=== PATIENT | male | born 1965 | race Caucasian/White ===

== ENCOUNTER 2019-02-12 07:04 | Emergency (ER) | payer SELFPAY ==
--- NOTE | 2019-02-12 07:44 | EDM.PDOC ---
ED HPI GENERAL MEDICAL PROBLEM - General Chief Complaint: Respiratory Problem Stated Complaint: CHEST COLD, SORE THOAT Time Seen by Provider: 02/12/19 07:07 Source of Information: Reports: Patient History Limitations: Reports: No Limitations - History of Present Illness INITIAL COMMENTS - FREE TEXT/NARRATIVE: History of present illness: []Patient has had sinus congestion and pain with fevers, chills 3 days. He states his throat feels dry and painful when he swallows but is not having difficulty tolerating liquids or food but denies being short of breath. He does have a mild cough with chest ejection. Review of systems: As per history of present illness and below otherwise all systems reviewed and negative. Past medical history: As per history of present illness and as reviewed below otherwise noncontributory. Surgical history: As per history of present illness and as reviewed below otherwise noncontributory. Social history: No reported history of drug or alcohol abuse. Family history: As per history of present illness and as reviewed below otherwise noncontributory. Physical exam: General: Well developed, well nourished in NAD HEENT: Atraumatic, normocephalic, pupils reactive, negative for conjunctival pallor or scleral icterus, mucous membranes moist, throat clear, no erythema or exudate, neck supple, nontender, trachea midline. Positives frontal sinus tenderness palpation Lungs: Clear to auscultation, breath sounds equal bilaterally, chest nontender. Heart: S1S2, regular, negative for clicks, rubs, or JVD. Abdomen: NABS, Soft, nondistended, nontender. Negative for masses or hepatosplenomegaly. Negative for costovertebral tenderness. Pelvis: Stable nontender. Genitourinary: Deferred. Rectal: Deferred. Extremities: Atraumatic, negative for cords or calf pain. Neurovascular unremarkable. Neuro: Awake, alert, oriented. Cranial nerves II through XII unremarkable. Cerebellum unremarkable. Motor and sensory unremarkable throughout. Exam nonfocal. Skin:warm and dry Diagnostics: None Therapeutics: None ED Course: Stable Impression: Acute sinusitis Prescriptions: Z-Enmanuel Plan: Take meds as directed, follow up with your primary care physician, return to ER if symptoms worsen or change. Definitive disposition and diagnosis as appropriate pending reevaluation and review of above. - Related Data Allergies Allergy/AdvReac Type Severity Reaction Status Date / Time Penicillins Allergy Cannot Verified 02/12/19 07:15 Remember Home Meds: Home Meds Azithromycin [Zithromax] 250 mg PO DAILY #6 tab 02/12/19 [Rx] Omeprazole Magnesium [Prilosec Otc] 20 mg PO DAILY 02/12/19 [History] Past Medical History - Infectious Disease History Infectious Disease History: Reports: Chicken Pox, Measles - Past Surgical History Other Musculoskeletal Surgeries/Procedures:: arm surgery Social & Family History - Family History Family Medical History: Noncontributory - Tobacco Use Smoking Status *Q: Current Every Day Smoker Years of Tobacco use: 35 Packs/Tins Daily: 1.5 - Recreational Drug Use Recreational Drug Use: No ED ROS GENERAL - Review of Systems Review Of Systems: ROS reveals no pertinent complaints other than HPI. ED EXAM, GENERAL - Physical Exam Exam: See Below (The history of present illness) Course - Vital Signs Last Recorded V/S: Last Vital Signs Temp 97.6 F 02/12/19 07:17 Pulse 81 02/12/19 07:17 Resp 18 02/12/19 07:17 BP 118/74 02/12/19 07:17 Pulse Ox 94 L 02/12/19 07:17 Departure - Departure Time of Disposition: 07:42 Disposition: Home, Self-Care 01 Condition: Good Clinical Impression: Acute sinusitis Qualifiers: Sinusitis location: unspecified location Recurrence: non-recurrent Qualified Code(s): J01.90 - Acute sinusitis, unspecified - Discharge Information *PRESCRIPTION DRUG MONITORING PROGRAM REVIEWED*: No *COPY OF PRESCRIPTION DRUG MONITORING REPORT IN PATIENT VIRGEN: No Prescriptions: Azithromycin [Zithromax] 250 mg PO DAILY #6 tab Referrals: PCP,None [Primary Care Provider] - Additional Instructions: The following information is given to patients seen in the emergency department who are being discharged to home. This information is to outline your options for follow-up care. We provide all patients seen in our emergency department with a follow-up referral. The need for follow-up, as well as the timing and circumstances, are variable depending upon the specifics of your emergency department visit. If you don't have a primary care physician on staff, we will provide you with a referral. We always advise you to contact your personal physician following an emergency department visit to inform them of the circumstance of the visit and for follow-up with them and/or the need for any referrals to a consulting specialist. The emergency department will also refer you to a specialist when appropriate. This referral assures that you have the opportunity for follow-up care with a specialist. All of these measure are taken in an effort to provide you with optimal care, which includes your follow-up. Under all circumstances we always encourage you to contact your private physician who remains a resource for coordinating your care. When calling for follow-up care, please make the office aware that this follow-up is from your recent emergency room visit. If for any reason you are refused follow-up, please contact the [facility] Emergency Department at and asked to speak to the emergency department charge nurse. [facility] [address] [place] [id number]
== END 2019-02-12 07:56 | disposition home or self-care (01) ==
LOC: MW.ED 07:04
DX: J01.90 Acute sinusitis, unspecified (principal); F17.210 Nicotine dependence, cigarettes, uncomplicated; Z88.0 Allergy status to penicillin; Z79.899 Other long term (current) drug therapy
CPT/HCPCS: 99283

== ENCOUNTER 2019-04-01 07:45 | Observation (INO) | payer SELFPAY ==
[2019-04-01] MEDS ORDERED: Nitroglycerin 0.4 MG Tab.SL SL PRN (07:51)
--- NOTE | 2019-04-01 07:53 | EDM.PDOC ---
ED HPI GENERAL MEDICAL PROBLEM - General Stated Complaint: CHEST PAIN Time Seen by Provider: 04/01/19 07:50 - History of Present Illness INITIAL COMMENTS - FREE TEXT/NARRATIVE: HISTORY AND PHYSICAL: History of present illness: Patient 53-year-old white male with a 45+ pack year history of smoking or sensory concern of chest pain shortness of breath started acutely approximately hour prior to arrival he denies similar episodes in the past he states he states he has never been told of any lung problems or heart problems there's been no associated palpitations or nausea vomiting Review of systems: As per history of present illness and below otherwise all systems reviewed and negative. Past medical history: As per history of present illness and as reviewed below otherwise noncontributory. Surgical history: As per history of present illness and as reviewed below otherwise noncontributory. Social history: No reported history of drug or alcohol abuse. Family history: As per history of present illness and as reviewed below otherwise noncontributory. Physical exam: HEENT: Atraumatic, normocephalic, pupils reactive, negative for conjunctival pallor or scleral icterus, mucous membranes moist, throat clear, neck supple, nontender, trachea midline. Lungs: Diminished, breath sounds equal bilaterally, chest nontender. Heart: S1S2, regular, negative for clicks, rubs, or JVD. Abdomen: Soft, nondistended, nontender. Negative for masses or hepatosplenomegaly. Negative for costovertebral tenderness. Pelvis: Stable nontender. Genitourinary: Deferred. Rectal: Deferred. Extremities: Atraumatic, negative for cords or calf pain. Neurovascular unremarkable. Neuro: Awake, alert, oriented. Cranial nerves II through XII unremarkable. Cerebellum unremarkable. Motor and sensory unremarkable throughout. Exam nonfocal. Diagnostics: CBC CMP troponin PT/INR BNP chest x-ray EKG d-dimer Therapeutics: IV O2 monitor aspirin nitroglycerin Impression: #1 chest pain #2 dyspnea Definitive disposition and diagnosis as appropriate pending reevaluation and review of above. - Related Data Allergies Allergy/AdvReac Type Severity Reaction Status Date / Time Penicillins Allergy Cannot Verified 04/01/19 07:54 Remember Home Meds: Home Meds Omeprazole Magnesium [Prilosec Otc] 20 mg PO DAILY 02/12/19 [History] Past Medical History - Infectious Disease History Infectious Disease History: Reports: Chicken Pox, Measles - Past Surgical History Other Musculoskeletal Surgeries/Procedures:: arm surgery Social & Family History - Family History Family Medical History: Noncontributory ED ROS GENERAL - Review of Systems Review Of Systems: ROS reveals no pertinent complaints other than HPI. ED EXAM, GENERAL - Physical Exam Exam: See Below (See dictation) Course - Vital Signs Last Recorded V/S: Last Vital Signs Temp 36.3 C 04/01/19 08:55 Pulse 67 04/01/19 08:55 Resp 16 04/01/19 08:55 BP 108/78 04/01/19 08:55 Pulse Ox 95 04/01/19 08:55 - Orders/Labs/Meds Orders: Active Orders 24 hr Category Date Time Status Cardiac Monitoring [RC] . DIRECTED Care 04/01/19 07:51 Active EKG Documentation Completion [RC] STAT Care 04/01/19 07:51 Active Oxygen Therapy [RC] PRN Care 04/01/19 07:52 Active Pulse Oximetry [RC] CONTINUOUS Care 04/01/19 07:52 Active Nitroglycerin [Nitrostat] Med 04/01/19 07:51 Active 0.4 mg SL Q5M PRN Medication Orders Nitroglycerin (Nitrostat) 0.4 mg SL Q5M PRN PRN Reason: Chest Pain Stop: 04/02/19 07:52 Labs: Laboratory Tests 04/01/19 04/01/19 04/01/19 Range/Units 07:45 07:45 07:45 WBC 10.91 (4.0-11.0) K/uL RBC 5.20 (4.50-5.90) M/uL Hgb 15.8 (13.0-17.0) g/dL Hct 47.6 (38.0-50.0) % MCV 91.5 (80.0-98.0) fL MCH 30.4 (27.0-32.0) pg MCHC 33.2 (31.0-37.0) g/dL RDW Std Deviation 44.6 (28.0-62.0) fl RDW Coeff of Hemanth 13 (11.0-15.0) % Plt Count 240 (150-400) K/uL MPV 10.10 (7.40-12.00) fL Neut % (Auto) 57.7 (48.0-80.0) % Lymph % (Auto) 29.6 (16.0-40.0) % [place] % (Auto) 9.5 (0.0-15.0) % Eos % (Auto) 2.6 (0.0-7.0) % Baso % (Auto) 0.6 (0.0-1.5) % Neut # (Auto) 6.3 H (1.4-5.7) K/uL Lymph # (Auto) 3.2 H (0.6-2.4) K/uL [place] # (Auto) 1.0 H (0.0-0.8) K/uL Eos # (Auto) 0.3 (0.0-0.7) K/uL Baso # (Auto) 0.1 (0.0-0.1) K/uL Nucleated RBC % 0.0 /100WBC Nucleated RBCs # 0 K/uL INR 0.98 D-Dimer, Quantitative 0.24 (0.0-0.50) mg/L FEU Sodium 139 (136-148) mmol/L Potassium 4.3 (3.5-5.1) mmol/L Chloride 105 (98-107) mmol/L Carbon Dioxide 26.7 (21.0-32.0) mmol/L BUN 21 H (7.0-18.0) mg/dL Creatinine 1.2 (0.8-1.3) mg/dL Est Cr Clr Drug Dosing 79.53 mL/min Estimated GFR (MDRD) > 60.0 ml/min Glucose 152 H (74-106) mg/dL Calcium 8.4 L (8.5-10.1) mg/dL Total Bilirubin 0.4 (0.2-1.0) mg/dL AST 22 (15-37) IU/L ALT 28 (14-63) IU/L Alkaline Phosphatase 109 (46-116) U/L Troponin I < 0.050 (0.000-0.056) ng/mL B-Natriuretic Peptide (<100) PG/ML Total Protein 7.0 (6.4-8.2) g/dL Albumin 3.6 (3.4-5.0) g/dL Globulin 3.4 (2.6-4.0) g/dL Albumin/Globulin Ratio 1.1 (0.9-1.6) 04/01/19 Range/Units 07:45 WBC (4.0-11.0) K/uL RBC (4.50-5.90) M/uL Hgb (13.0-17.0) g/dL Hct (38.0-50.0) % MCV (80.0-98.0) fL MCH (27.0-32.0) pg MCHC (31.0-37.0) g/dL RDW Std Deviation (28.0-62.0) fl RDW Coeff of Hemanth (11.0-15.0) % Plt Count (150-400) K/uL MPV (7.40-12.00) fL Neut % (Auto) (48.0-80.0) % Lymph % (Auto) (16.0-40.0) % [place] % (Auto) (0.0-15.0) % Eos % (Auto) (0.0-7.0) % Baso % (Auto) (0.0-1.5) % Neut # (Auto) (1.4-5.7) K/uL Lymph # (Auto) (0.6-2.4) K/uL [place] # (Auto) (0.0-0.8) K/uL Eos # (Auto) (0.0-0.7) K/uL Baso # (Auto) (0.0-0.1) K/uL Nucleated RBC % /100WBC Nucleated RBCs # K/uL INR D-Dimer, Quantitative (0.0-0.50) mg/L FEU Sodium (136-148) mmol/L Potassium (3.5-5.1) mmol/L Chloride (98-107) mmol/L Carbon Dioxide (21.0-32.0) mmol/L BUN (7.0-18.0) mg/dL Creatinine (0.8-1.3) mg/dL Est Cr Clr Drug Dosing mL/min Estimated GFR (MDRD) ml/min Glucose (74-106) mg/dL Calcium (8.5-10.1) mg/dL Total Bilirubin (0.2-1.0) mg/dL AST (15-37) IU/L ALT (14-63) IU/L Alkaline Phosphatase (46-116) U/L Troponin I (0.000-0.056) ng/mL B-Natriuretic Peptide 5 (<100) PG/ML Total Protein (6.4-8.2) g/dL Albumin (3.4-5.0) g/dL Globulin (2.6-4.0) g/dL Albumin/Globulin Ratio (0.9-1.6) Meds: Medications Generic Name Dose Route Start Last Admin Trade Name Freq PRN Reason Stop Dose Admin Nitroglycerin 0.4 mg 04/01/19 07:51 Nitrostat SL 04/02/19 07:52 Q5M PRN Chest Pain Discontinued Medications Generic Name Dose Route Start Last Admin Trade Name Freq PRN Reason Stop Dose Admin Aspirin 162 mg 04/01/19 07:54 04/01/19 08:13 Aspirin PO 04/01/19 07:55 Not Given ONETIME ONE Departure - Departure Time of Disposition: 10:36 Disposition: Refer to Observation Condition: Good Clinical Impression: Chest pain, Dyspnea - Discharge Information - My Orders Last 24 Hours: My Active Orders 04/01/19 07:51 Cardiac Monitoring [RC] . DIRECTED EKG Documentation Completion [RC] STAT Nitroglycerin [Nitrostat] 0.4 mg SL Q5M PRN 04/01/19 07:52 Oxygen Therapy [RC] PRN Pulse Oximetry [RC] CONTINUOUS - Assessment/Plan Last 24 Hours: My Active Orders 04/01/19 07:51 Cardiac Monitoring [RC] . DIRECTED EKG Documentation Completion [RC] STAT Nitroglycerin [Nitrostat] 0.4 mg SL Q5M PRN 04/01/19 07:52 Oxygen Therapy [RC] PRN Pulse Oximetry [RC] CONTINUOUS
[2019-04-01] MEDS ORDERED: Aspirin 81 MG Tab.Chew PO ONE (07:54)
[2019-04-01 08:42] LABS: CHLORIDE,CL 105 mmol/L (98-107); SODIUM,NA 139 mmol/L (136-148)
--- NOTE | 2019-04-01 08:49 | CR ---
INDICATION: Chest pain. TECHNIQUE: AP portable upright chest at 7:55 a.m. FINDINGS: Both lungs are expanded without pneumothoraces or infiltrates. Questionable calcified granuloma right mid lung laterally. Clear left lung. Normal heart size. The included skeleton is grossly unremarkable. IMPRESSION: No acute cardiopulmonary process identified. Dictated by Edgar Acharya MD @ Apr 01 2019 8:47AM Signed by Dr. Edgar Acharya @ Apr 01 2019 8:47AM
--- NOTE | 2019-04-01 11:15 | PCM.HP ---
H&P History of Present Illness - General Date of Service: 04/01/19 Admit Problem/Dx: Admission Diagnosis/Problem Admission Diagnosis/Problem Chest pain Source of Information: Patient History Limitations: Reports: No Limitations - History of Present Illness Initial Comments - Free Text/Narative: This 53 year old male with pmh of smoking presents to the ED today with complaints of chest pain that started 20 minutes prior to arrival. He reports he was standing around, about to go have a cigarette, when suddenly he had a pain, fluttering and sharp to his L mid chest. he reports he had some shortness of breath with this and felt flushed. Then it went away. He came to the ED right away, co workers gave him 2 aspirin. He denies radiation of pain. nothing he did made the pain worse or better. It went away on its own. Reports it hurts to press on his L chest, rpeorts he has been lifting heavy tires recently and feels it may be muscular pain. No nausea or vomiting, no palpitation feelings. No abdominal pain. No black or blood stools. No history of CAD. reports family history of DM and Mother had WI and was poorly controlled DM, at 54 from [place]. He reports tobacco use, 1-2 ppd. No alcohol use and no recreational drug use. Never had a stress test In the ED. Labwork WNL. glucose elevated 152. Troponin negative. EKG SR with no acute ST changes. VS stable. No further chest pain. He will be admitted chest pain rule out ACS. No PCP in area. Left Chest Pain Score (Numeric/FACES): 2 - Related Data Allergies/Adverse Reactions: Allergies Allergy/AdvReac Type Severity Reaction Status Date / Time Penicillins Allergy Cannot Verified 04/01/19 07:54 Remember Home Medications: Home Meds Omeprazole Magnesium [Prilosec Otc] 20 mg PO DAILY 02/12/19 [History] Past Medical History HEENT History: Reports: None Cardiovascular History: Reports: None. Denies: Afib, Blood Clots/VTE/DVT, CAD, High Cholesterol, Hypertension, [place] Respiratory History: Reports: None. Denies: Asthma, COPD Gastrointestinal History: Reports: GERD Genitourinary History: Reports: None. Denies: Chronic Renal Insuffiency Musculoskeletal History: Reports: None Neurological History: Reports: None. Denies: CVA, Migraines, TIA Endocrine/Metabolic History: Reports: None. Denies: Diabetes, Type II, Hypothyroidism - Infectious Disease History Infectious Disease History: Reports: Chicken Pox, Measles - Past Surgical History Musculoskeletal Surgical History: Reports: Other (See Below) Other Musculoskeletal Surgeries/Procedures:: arm surgery Social & Family History - Family History Family Medical History: Noncontributory - Tobacco Use Smoking Status *Q: Current Every Day Smoker Years of Tobacco use: 30 Packs/Tins Daily: 1.5 Smoking Cessation Information Provided To Patient: Yes - Alcohol Use Alcohol Use History: No - Recreational Drug Use Recreational Drug Use: No - Living Situation & Occupation Living situation: Reports: Occupation: Employed H&P Review of Systems - Review of Systems: Review Of Systems: See Below General: Reports: No Symptoms. Denies: Fever, Chills, Malaise, Weakness HEENT: Reports: No Symptoms. Denies: Headaches, Sinus Congestion, Sore Throat, Vertigo Pulmonary: Reports: No Symptoms. Denies: Shortness of Breath Cardiovascular: Reports: No Symptoms. Denies: Chest Pain, Edema, Syncope, Blood Pressure Problem Gastrointestinal: Reports: No Symptoms. Denies: Abdominal Pain, Black Stool, Bloody Stool, Nausea, Vomiting Genitourinary: Reports: No Symptoms Musculoskeletal: Reports: Muscle Pain (L chest upon palapation ) Skin: Reports: No Symptoms Psychiatric: Reports: No Symptoms Neurological: Reports: No Symptoms Hematologic/Lymphatic: Reports: No Symptoms Immunologic: Reports: No Symptoms Exam - Exam Exam: See Below - Vital Signs Vital Signs: Last Vital Signs Temp 97.3 F 04/01/19 08:55 Pulse 67 04/01/19 08:55 Resp 16 04/01/19 08:55 BP 108/78 04/01/19 08:55 Pulse Ox 95 04/01/19 08:55 Weight: 88.451 kg - Exam General: Alert, Oriented, Cooperative Neck: Supple, Trachea Midline Lungs: Clear to Auscultation, Normal Respiratory Effort Cardiovascular: Regular Rate, Regular Rhythm, Normal S1, Normal S2, Other ( tenderness with palpation to L pectoral muscle. reporoduces similar pain from earlier this morning.). No: Irregular Rhythm, Tachycardia, Systolic Murmur GI/Abdominal Exam: Normal Bowel Sounds, Soft, Non-Tender, No Organomegaly Extremities: Normal Inspection, Normal Range of Motion, Non-Tender, No Pedal Edema Neuro Extensive - Mental Status: Alert, Oriented x3 Neuro Extensive - Motor, Sensory, Reflexes: CN II-XII Intact Psychiatric: Alert, Normal Affect, Normal Mood - Patient Data Lab Results Last 24 hrs: Laboratory Results - last 24 hr 04/01/19 04/01/19 04/01/19 Range/Units 07:45 07:45 07:45 WBC 10.91 (4.0-11.0) K/uL RBC 5.20 (4.50-5.90) M/uL Hgb 15.8 (13.0-17.0) g/dL Hct 47.6 (38.0-50.0) % MCV 91.5 (80.0-98.0) fL MCH 30.4 (27.0-32.0) pg MCHC 33.2 (31.0-37.0) g/dL RDW Std Deviation 44.6 (28.0-62.0) fl RDW Coeff of Hemanth 13 (11.0-15.0) % Plt Count 240 (150-400) K/uL MPV 10.10 (7.40-12.00) fL Neut % (Auto) 57.7 (48.0-80.0) % Lymph % (Auto) 29.6 (16.0-40.0) % Lynn % (Auto) 9.5 (0.0-15.0) % Eos % (Auto) 2.6 (0.0-7.0) % Baso % (Auto) 0.6 (0.0-1.5) % Neut # (Auto) 6.3 H (1.4-5.7) K/uL Lymph # (Auto) 3.2 H (0.6-2.4) K/uL Lynn # (Auto) 1.0 H (0.0-0.8) K/uL Eos # (Auto) 0.3 (0.0-0.7) K/uL Baso # (Auto) 0.1 (0.0-0.1) K/uL Nucleated RBC % 0.0 /100WBC Nucleated RBCs # 0 K/uL INR 0.98 D-Dimer, Quantitative 0.24 (0.0-0.50) mg/L FEU Sodium 139 (136-148) mmol/L Potassium 4.3 (3.5-5.1) mmol/L Chloride 105 (98-107) mmol/L Carbon Dioxide 26.7 (21.0-32.0) mmol/L BUN 21 H (7.0-18.0) mg/dL Creatinine 1.2 (0.8-1.3) mg/dL Est Cr Clr Drug Dosing 79.53 mL/min Estimated GFR (MDRD) > 60.0 ml/min Glucose 152 H (74-106) mg/dL Calcium 8.4 L (8.5-10.1) mg/dL Total Bilirubin 0.4 (0.2-1.0) mg/dL AST 22 (15-37) IU/L ALT 28 (14-63) IU/L Alkaline Phosphatase 109 (46-116) U/L Troponin I < 0.050 (0.000-0.056) ng/mL B-Natriuretic Peptide (<100) PG/ML Total Protein 7.0 (6.4-8.2) g/dL Albumin 3.6 (3.4-5.0) g/dL Globulin 3.4 (2.6-4.0) g/dL Albumin/Globulin Ratio 1.1 (0.9-1.6) 04/01/19 Range/Units 07:45 WBC (4.0-11.0) K/uL RBC (4.50-5.90) M/uL Hgb (13.0-17.0) g/dL Hct (38.0-50.0) % MCV (80.0-98.0) fL MCH (27.0-32.0) pg MCHC (31.0-37.0) g/dL RDW Std Deviation (28.0-62.0) fl RDW Coeff of Hemanth (11.0-15.0) % Plt Count (150-400) K/uL MPV (7.40-12.00) fL Neut % (Auto) (48.0-80.0) % Lymph % (Auto) (16.0-40.0) % Lynn % (Auto) (0.0-15.0) % Eos % (Auto) (0.0-7.0) % Baso % (Auto) (0.0-1.5) % Neut # (Auto) (1.4-5.7) K/uL Lymph # (Auto) (0.6-2.4) K/uL Lynn # (Auto) (0.0-0.8) K/uL Eos # (Auto) (0.0-0.7) K/uL Baso # (Auto) (0.0-0.1) K/uL Nucleated RBC % /100WBC Nucleated RBCs # K/uL INR D-Dimer, Quantitative (0.0-0.50) mg/L FEU Sodium (136-148) mmol/L Potassium (3.5-5.1) mmol/L Chloride (98-107) mmol/L Carbon Dioxide (21.0-32.0) mmol/L BUN (7.0-18.0) mg/dL Creatinine (0.8-1.3) mg/dL Est Cr Clr Drug Dosing mL/min Estimated GFR (MDRD) ml/min Glucose (74-106) mg/dL Calcium (8.5-10.1) mg/dL Total Bilirubin (0.2-1.0) mg/dL AST (15-37) IU/L ALT (14-63) IU/L Alkaline Phosphatase (46-116) U/L Troponin I (0.000-0.056) ng/mL B-Natriuretic Peptide 5 (<100) PG/ML Total Protein (6.4-8.2) g/dL Albumin (3.4-5.0) g/dL Globulin (2.6-4.0) g/dL Albumin/Globulin Ratio (0.9-1.6) Result Diagrams: 04/01/19 07:45 04/01/19 07:45 EKG INTERPRETATION EKG Date: 04/01/19 Rhythm: NSR Rate (Beats/Min): 70 P-Wave: Present QRS: Normal ST-T: Normal QT: Normal Comparison: NA - No Prior EKG *Q Meaningful Use (ADM) - VTE Risk Assess *Q Each Risk Factor Represents 1 Point: Age 41 - 59 years Total Score 1 Point Risk Factors: 1 Each Risk Factor Represents 2 Points: None Total Score 2 Point Risk Factors: 0 Each Risk Factor Represents 3 Points: None Total Score 3 Point Risk Factors: 0 Each Risk Factor Represents 5 Points: None Total Score 5 Point Risk Factors: 0 Venous Thromboembolism Risk Factor Score *Q: 1 - Problem List (1) Chest pain SNOMED Code(s): 13582649 ICD Code: R07.9 - CHEST PAIN, UNSPECIFIED Status: Acute Current Visit: Yes (2) Smoker SNOMED Code(s): 80374390 ICD Code: F17.200 - NICOTINE DEPENDENCE, UNSPECIFIED, UNCOMPLICATED Status : Acute Current Visit: Yes Problem List Initiated/Reviewed/Updated: Yes Orders Last 24hrs: Active Orders 24 hr Category Date Time Status Patient Status [ADT] Stat ADT 04/01/19 10:38 Active Cardiac Monitoring [RC] . DIRECTED Care 04/01/19 07:51 Active EKG Documentation Completion [RC] STAT Care 04/01/19 07:51 Active Oxygen Therapy [RC] PRN Care 04/01/19 07:52 Active Pulse Oximetry [RC] CONTINUOUS Care 04/01/19 07:52 Active GLYCOSYLATED HEMOGLOBIN,HGBA1C [CHEM] Stat Lab 04/01/19 11:06 Ordered LIPID PANEL [CHEM] Stat Lab 04/01/19 11:06 Ordered Nitroglycerin [Nitrostat] Med 04/01/19 07:51 Active 0.4 mg SL Q5M PRN Medication Orders Nitroglycerin (Nitrostat) 0.4 mg SL Q5M PRN PRN Reason: Chest Pain Stop: 04/02/19 07:52 Assessment/Plan Comment:: This 53 year old male admitted with chest pain rule out ACS 1. Chest pain: Will monitor on telemetry, Trend troponins. Obtain lipid panel, and A1c. Will need outpatient stress test, he would like to return home for this if possible. He will be going home after admission. Educated on tobacco cessation, he currently isn't interested, reports trying in the past unsuccessfully. VTE prophylaxis: SCDs Dispo: 1 day
[2019-04-01 11:39] LABS: HEMOGLOBIN A1C 6.2 % (4.5-6.2)
[2019-04-01] MEDS ORDERED: Acetaminophen 325 MG Tab PO PRN (12:01)
[2019-04-01] MEDS ORDERED: Ondansetron 4 MG/2 ML SDV IVPUSH PRN (12:01)
[2019-04-01] MEDS ORDERED: Sodium Chloride 0.9% 2.5 ML Syringe FLUSH PRN (12:01)
== END 2019-04-01 20:30 | disposition home or self-care (01) ==
LOC: MW.ED 07:45 → MW.MS 11:29
PROVIDERS: ADMIT Internal Medicine; ATTEND Internal Medicine
DX: R07.9 Chest pain, unspecified (principal); F17.210 Nicotine dependence, cigarettes, uncomplicated; K21.9 Gastro-esophageal reflux disease without esophagitis; Z88.0 Allergy status to penicillin
CPT/HCPCS: 36415; 71045; 80053; 80061; 83036; 83880; 84484; 85025; 85379; 85610; 93005; 99285; G0378; 99284

== ENCOUNTER 2019-12-23 14:23 | Emergency (ER) | payer SELFPAY ==
--- NOTE | 2019-12-23 15:02 | EDM.PDOC ---
ED HPI GENERAL MEDICAL PROBLEM - General Chief Complaint: ENT Problem Stated Complaint: SORE THROAT Time Seen by Provider: 12/23/19 15:02 Source of Information: Reports: Patient History Limitations: Reports: No Limitations - History of Present Illness INITIAL COMMENTS - FREE TEXT/NARRATIVE: HISTORY AND PHYSICAL: History of present illness: Patient is a 54-year-old male presents to the ED with complaint of sore throat. Patient reports sore throat x 3 days. He states he has developed slight cough this morning, feels like he is needing to clear his throat. He denies fevers, chills, chest pain, shortness of breath, nausea, vomiting, diarrhea, abdominal pain. He reports smoking 1-2ppd x 40+ years. Denies significant past medical history. Review of systems: As per history of present illness and below otherwise all systems reviewed and negative. Past medical history: As per history of present illness and as reviewed below otherwise noncontributory. Surgical history: As per history of present illness and as reviewed below otherwise noncontributory. Social history: No reported history of drug or alcohol abuse. Family history: As per history of present illness and as reviewed below otherwise noncontributory. Physical exam: General: Patient sitting comfortably in no acute distress and nontoxic appearing HEENT: Oropharynx is erythematous without exudate Atraumatic, normocephalic, pupils reactive, negative for conjunctival pallor or scleral icterus, mucous membranes moist, neck supple, nontender, trachea midline. No meningeal signs. Lungs: Clear to auscultation, breath sounds equal bilaterally, chest nontender. Heart: S1S2, regular, negative for clicks, rubs, or overt murmur. Abdomen: Soft, nondistended, nontender. Negative for masses or hepatosplenomegaly. Negative for costovertebral tenderness. No rigidity, rebound , guarding. Pelvis: Stable nontender. Genitourinary: Deferred. Rectal: Deferred. Extremities: Atraumatic, negative for cords or calf pain. Neurovascular unremarkable. Neuro: Awake, alert, oriented. Cranial nerves II through XII unremarkable. Cerebellum unremarkable. Motor and sensory unremarkable throughout. Exam nonfocal. Notes: Patient has not had recent travel or known sick contacts, afebrile, and mild respiratory symptoms and with limited testing availability for COVID-19, does not meet requirements for testing at this time. My suspicion for COVID is low and was advised to self-quarantine if true fever and worsening respiratory symptoms develop for 14 days and to return to ED as needed for significant symptoms. Oropharynx is erythematous, will cover for strep with azithromycin (PCN allergy) . Diagnostics: rapid strep Therapeutics: none Prescriptions: Azithromycin Impression: Acute pharyngitis Plan: Take antibiotic as instructed Alternate tylenol and motrin as needed Infection precautions as instructed Follow up with primary care provider Return to ED as needed as discussed Definitive disposition and diagnosis as appropriate pending reevaluation and review of above. headache Pain Score (Numeric/FACES): 4 throat Pain Score (Numeric/FACES): 3 - Related Data Allergies Allergy/AdvReac Type Severity Reaction Status Date / Time Penicillins Allergy Cannot Verified 12/23/19 14:40 Remember Home Meds: Home Meds Aspirin 81 mg PO BEDTIME #30 tab.chew 04/01/19 [Rx] Azithromycin [Zithromax] 250 mg PO ASDIRECTED #1 dosepk 12/23/19 [Rx] Esomeprazole Magnesium [Nexium] 40 mg PO DAILY 12/23/19 [History] Past Medical History HEENT History: Reports: None Cardiovascular History: Reports: None Respiratory History: Reports: None Gastrointestinal History: Reports: GERD Genitourinary History: Reports: None Musculoskeletal History: Reports: None Neurological History: Reports: None Endocrine/Metabolic History: Reports: None - Infectious Disease History Infectious Disease History: Reports: Chicken Pox, Measles - Past Surgical History Musculoskeletal Surgical History: Reports: Arthroscopic Procedure, Carpal Tunnel , Other (See Below) Other Musculoskeletal Surgeries/Procedures:: arm surgery Social & Family History - Family History Family Medical History: Noncontributory - Tobacco Use Smoking Status *Q: Current Every Day Smoker Years of Tobacco use: 40 Packs/Tins Daily: 1.5 - Caffeine Use Caffeine Use: Reports: Coffee - Recreational Drug Use Recreational Drug Use: No - Living Situation & Occupation Living situation: Reports: Occupation: Employed ED ROS ENT - Review of Systems Review Of Systems: Comprehensive ROS is negative, except as noted in HPI. ED EXAM, ENT - Physical Exam Exam: See Below (see dictation) Course - Vital Signs Last Recorded V/S: Last Vital Signs Temp 97.4 F 12/23/19 14:36 Pulse 99 12/23/19 14:36 Resp 16 12/23/19 14:36 BP 123/82 12/23/19 14:36 Pulse Ox 96 12/23/19 14:36 - Orders/Labs/Meds Orders: Active Orders 24 hr Category Date Time Status CULTURE STREP A CONFIRMATION [] Stat Lab 12/23/19 15:07 Results STREP SCRN A RAPID W CULT CONF [RM] Stat Lab 12/23/19 14:38 Ordered Departure - Departure Time of Disposition: 15:41 Disposition: Home, Self-Care 01 Condition: Good Clinical Impression: Acute pharyngitis - Discharge Information Prescriptions: Azithromycin [Zithromax] 250 mg PO ASDIRECTED #1 dosepk Referrals: PCP,None [Primary Care Provider] - Forms: ED Department Discharge Additional Instructions: The following information is given to patients seen in the emergency department who are being discharged to home. This information is to outline your options for follow-up care. We provide all patients seen in our emergency department with a follow-up referral. The need for follow-up, as well as the timing and circumstances, are variable depending upon the specifics of your emergency department visit. If you don't have a primary care physician on staff, we will provide you with a referral. We always advise you to contact your personal physician following an emergency department visit to inform them of the circumstance of the visit and for follow-up with them and/or the need for any referrals to a consulting specialist. The emergency department will also refer you to a specialist when appropriate. This referral assures that you have the opportunity for follow-up care with a specialist. All of these measure are taken in an effort to provide you with optimal care, which includes your follow-up. Under all circumstances we always encourage you to contact your private physician who remains a resource for coordinating your care. When calling for follow-up care, please make the office aware that this follow-up is from your recent emergency room visit. If for any reason you are refused follow-up, please contact the [facility] Emergency Department at and asked to speak to the emergency department charge nurse. [facility] [address] [place] [id number] [facility] [address] [place] [address] Take antibiotic as instructed Alternate tylenol and motrin as needed Infection precautions as instructed Follow up with primary care provider Return to ED as needed as discussed Sepsis Event Note - Evaluation Sepsis Screening Result: No Definite Risk - Focused Exam Vital Signs: Vital Signs Temp Pulse Resp BP Pulse Ox 12/23/19 14:36 97.4 F 99 16 123/82 96 Date Exam was Performed: 12/23/19 Time Exam was Performed: 15:37 - My Orders Last 24 Hours: My Active Orders 12/23/19 14:38 STREP SCRN A RAPID W CULT CONF [RM] Stat 12/23/19 15:07 CULTURE STREP A CONFIRMATION [RM] Stat - Assessment/Plan Last 24 Hours: My Active Orders 12/23/19 14:38 STREP SCRN A RAPID W CULT CONF [RM] Stat 12/23/19 15:07 CULTURE STREP A CONFIRMATION [RM] Stat
== END 2019-12-23 16:00 | disposition home or self-care (01) ==
LOC: MW.ED 14:23
DX: J02.9 Acute pharyngitis, unspecified (principal); K21.9 Gastro-esophageal reflux disease without esophagitis; F17.210 Nicotine dependence, cigarettes, uncomplicated; Z79.82 Long term (current) use of aspirin; Z79.899 Other long term (current) drug therapy; Z88.0 Allergy status to penicillin
CPT/HCPCS: 87081; 87880-QW; 99283